=== PATIENT | female | born 1975 | race Two or more races ===

== ENCOUNTER 2020-12-11 20:05 | Emergency (ER) | payer MEDICAID, OTHER ==
[~2020-12-11] VITALS: Ht 165.1 cm; Wt 108.9 kg
[2020-12-11 20:21] VITALS: BP 122/66
[2020-12-11] MEDS ORDERED: traMADol HCL 50 MG TAB PO ONE ×2 (22:30→23:30)
== END 2020-12-12 00:18 | disposition home or self-care (01) ==
LOC: ER 20:05 → EDUNIT# 20:05 → EDBD 20:05 → ER 12-12 00:18
DX: S20.211A Contusion of right front wall of thorax, initial encounter (principal); Z88.2 Allergy status to sulfonamides; Y08.89XA Assault by other specified means, initial encounter; Y93.89 Activity, other specified; Y92.89 Other specified places as the place of occurrence of the external cause; Y99.8 Other external cause status
CPT/HCPCS: 71101